=== PATIENT | female | born 1990 | race Two or more races ===

== ENCOUNTER → 2024-06-17 | Outpatient (CLI) | payer OTHER | LOC: M RAD 09:26 | PROVIDERS: ATTEND Advanced Practice Midwife | DX: O09.90 Supervision of high risk pregnancy, unspecified, unspecified trimester (principal); Z3A.35 35 weeks gestation of pregnancy ==

== ENCOUNTER 2024-07-28 09:39 | Inpatient (IN) | payer MEDICAID, OTHER ==
[~2024-07-28] VITALS: Ht 160 cm; Wt 83.4 kg
[2024-07-28 10:05] VITALS: BP 123/71
[2024-07-28] MEDS ORDERED: TRANEXAMIC ACID INJection 1,000 MG in NS 100 ML IV PRN (12:20)
[2024-07-28] MEDS ORDERED: LIDOCAINE 1% MDV 20ML VIAL INFIL PRN (12:20)
[2024-07-28] MEDS ORDERED: CARBOPROST TROMETHAMINE 250 MCG/ML AMP IM PRN (12:20)
[2024-07-28] MEDS ORDERED: METHYLERGONOVINE MALEATE 0.2MG/ML 1ML VIAL IM PRN (12:20)
[2024-07-28] MEDS ORDERED: OXYTOCIN INJ 10UNITS/ML 1ML VIAL IM PRN (12:20)
[2024-07-28] MEDS ORDERED: OXYTOCIN DRIP 30 UNITS in IV 1 EA IV PRN (12:20)
[2024-07-28 14:40] LABS: HEMATOCRIT 41.7 % (36.0-47.0); HEMOGLOBIN 14.4 g/dl (12.0-15.5); MEAN CORPUSCULAR HEMOGLOBIN 31.1 pg (27.0-33.0); MEAN CORPUSCULAR HGB CONC 34.5 g/dl (32.0-36.5); MEAN CORPUSCULAR VOLUME 90.1 fl (80.0-96.0); PLATELET COUNT, AUTOMATED 351 10^3/uL (150-450); RED BLOOD COUNT 4.63 10^6/uL (4.00-5.40); WHITE BLOOD COUNT 9.6 10^3/uL (4.0-10.0)
[2024-07-28] MEDS ORDERED: PRENTAB9 PO (15:38)
[2024-07-28 15:46] LABS: HEPATITIS C VIRUS ABY INDEX < 0.02 INDEX (<0.8)
[2024-07-28 18:10] VITALS: BP 120/78
[2024-07-28] MEDS: LACTATED RINGER'S 1000 ML IV STA (18:18)
[2024-07-28] MEDS ORDERED: LR 1,000 ML IV SCH (18:20)
[2024-07-28] MEDS: ceFAZolin SOD 2 GM in IV 1 EA IV ONE (19:12)
[2024-07-28] MEDS: BICITRA 30ML SOLN UDC PO ONE (19:12)
[2024-07-28 19:39] VITALS: BP 136/79
[2024-07-28] MEDS ORDERED: MORPHINE PRES-FREE INJ 10 MG/10 ML VIAL As Ordered ONE (19:50)
[2024-07-28] MEDS ORDERED: OXYTOCIN 30UNITS IN 0.9% NaCl 500ML IV BAG As Ordered ONE (19:51)
[2024-07-28] MEDS ORDERED: KETOROLAC 60MG 2ML VIAL As Ordered ONE (20:18)
[2024-07-28] MEDS ORDERED: ACETAMINOPHEN 1000MG/100ML IV BAG As Ordered ONE (20:18)
[2024-07-28] MEDS ORDERED: ONDANSETRON 4MG 2ML VIAL As Ordered ONE (20:18)
[2024-07-28] MEDS ORDERED: PHENYLephrine 500MCG 5ML (100MCG/ML) SYRINGE As Ordered ONE (20:30)
[2024-07-28] MEDS ORDERED: ePHEDrine SULFATE 25 MG/5 ML(5MG/ML) SYRINGE As Ordered ONE (20:30)
[2024-07-28] MEDS ORDERED: METOCLOPRAMIDE INJ 10MG/2ML VIAL As Ordered ONE (20:38)
[2024-07-28] MEDS ORDERED: DOCUSATE SODIUM 100MG CAPSULE PO PRN (20:55)
[2024-07-28] MEDS ORDERED: RHOGAM 300MCG (1500IU) INJ IM SCH (20:55)
[2024-07-28] MEDS ORDERED: PERCOCET 5MG/325MG TAB PO PRN (20:55)
[2024-07-28] MEDS ORDERED: SIMETHICONE 80MG CHEW TAB PO PRN (20:55)
[2024-07-28 21:17] LABS: CORD GAS ABE A -5.9; CORD GAS ABE V -5.2; CORD GAS HCO3 A 24.9 MMOL/L; CORD GAS HCO3 V 21.9 MMOL/L; CORD GAS O2 SAT A 59.7 %; CORD GAS O2 SAT V 58.1 %; CORD GAS PCO2 A 71.6 mmHg; CORD GAS PCO2 V 48.4 mmHg; CORD GAS PH A 7.159 UNITS; CORD GAS PH V 7.274 UNITS; CORD GAS PO2 A 28.8 mmHg; CORD GAS PO2 V 24.4 mmHg; CORD GAS SBC A 18.8 MMOL/L; CORD GAS SBC V 19.2 MMOL/L; CORD GAS TCO2 A 27.1 MMOL/L; CORD GAS TCO2 V 23.4 MMOL/L
[2024-07-28] MEDS: METHYLERGONOVINE MALEATE 0.2MG/ML 1ML VIAL IM STA (22:07)
[2024-07-28 22:37] VITALS: TEMP 97.7
[2024-07-28 23:50] VITALS: BP 135/67; O2SAT 99
[2024-07-28] MEDS: LR 1,000 ML IV SCH (23:50)
[2024-07-29] VITALS (9 sets, daily range): BP systolic 95–126; BP diastolic 54–74; O2SAT 96–100
[2024-07-29] MEDS: ONDANSETRON 4MG 2ML VIAL IV PRN (01:43)
[2024-07-29] MEDS: KETOROLAC 30 MG/ML 1ML VIAL IV SCH (02:50)
[2024-07-29 07:28] LABS: HEMATOCRIT 31.8 % (36.0-47.0); MEAN CORPUSCULAR HEMOGLOBIN 30.7 pg (27.0-33.0); MEAN CORPUSCULAR HGB CONC 34.6 g/dl (32.0-36.5); MEAN CORPUSCULAR VOLUME 88.8 fl (80.0-96.0); PLATELET COUNT, AUTOMATED 307 10^3/uL (150-450); RED BLOOD COUNT 3.58 10^6/uL (4.00-5.40); WHITE BLOOD COUNT 11.7 10^3/uL (4.0-10.0)
[2024-07-29] MEDS: PRENATAL VITAMINS CHEWABLE TABLET PO SCH (10:04)
[2024-07-29] MEDS: PERCOCET 5MG/325MG TAB PO PRN (18:35)
[2024-07-29] MEDS: IBUPROFEN 800 MG TAB PO SCH (23:09)
[2024-07-30 02:00] VITALS: BP 96/54; O2SAT 98
[2024-07-30 06:00] VITALS: BP 109/56; O2SAT 100
[2024-07-30] MEDS ORDERED: OXYC1TAB23 PO (07:57)
[2024-07-30] MEDS ORDERED: COLA100C5 PO (07:57)
[2024-07-30] MEDS ORDERED: IBUP80TA PO (07:57)
[2024-07-30] MEDS ORDERED: MEASLES,MUMPS,RUBELLA VACCINE INJ (MMR-II) SC.IMMUN ONE (09:00)
[2024-07-30 10:00] VITALS: BP 106/57; O2SAT 99
== END 2024-07-30 16:40 | disposition home or self-care (01) | DRG 540 ==
LOC: M LDO 09:39 → M LDI 12:12 → M OBS 23:18
PROVIDERS: ADMIT Advanced Practice Midwife; ATTEND Specialist
PROC: 10D00Z1 Extraction of Products of Conception, Low, Open Approach (ICD-10-PCS; principal; 2024-07-28 19:30)
DX: O34.211 Maternal care for low transverse scar from previous cesarean delivery (principal); Z37.0 Single live birth; Z3A.40 40 weeks gestation of pregnancy; O62.0 Primary inadequate contractions